=== PATIENT | male | born 1995 | race African-American/Black ===

== ENCOUNTER 2018-04-10 20:46 | Emergency (ER) | payer SELFPAY ==
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
[2018-04-10] MEDS ORDERED: IBUPROFEN 600 MG TABLET PO ONE (22:11)
== END 2018-04-10 22:19 | disposition home or self-care (01) ==
LOC: ER 20:46
DX: S60.051A Contusion of right little finger without damage to nail, initial encounter (principal); W22.8XXA Striking against or struck by other objects, initial encounter; F17.210 Nicotine dependence, cigarettes, uncomplicated; Y99.0 Civilian activity done for income or pay
CPT/HCPCS: 73140; 99283